=== PATIENT | female | born 1965 | race African-American/Black ===

== ENCOUNTER 2019-06-01 18:47 | Emergency (ER) | payer OTHER ==
[~2019-06-01] VITALS: Ht 152.4 cm; Wt 77.1 kg
[~2019-06-01 18:47] MED LIST: LIPITOR20 MG ORAL; METFORMIN HCL500 M1 ORAL; NORCO 5-325 TA1 EAC1 ORAL
[2019-06-01 19:10] VITALS: BP 157/84
--- NOTE | 2019-06-01 19:10 | NUR ---
Note undone in EDM - 06/01/19 at 2100 by JONELLE ED Nurse Note: Pt walked in to ED c/o rectal bleeding x2 days. Pt also c/o upper abdominal pain, weakness, dizziness and loss of appetite. Denies vomiting and diarrhea. Afebrile. Not in any distress. Kazakh speaking only. Family member at bedside.
--- NOTE | 2019-06-01 19:10 | NUR ---
ED Nurse Note: Pt walked in to ED c/o bloody stools x2 days. Pt also c/o upper abdominal pain, weakness, dizziness and loss of appetite. Denies vomiting and diarrhea. Afebrile. Not in any distress. Bulgarian speaking only. Family member at bedside.
--- NOTE | 2019-06-01 19:35 | NUR ---
ED Nurse Note: Iv line established. Blood and urine specimen collected and sent to lab.
--- NOTE | 2019-06-01 19:41 | Emergency Room Report ---
History of Present Illness General Chief Complaint: Gastrointestinal Bleed Source: Patient Present Illness HPI Is a 53-year-old female presents after increased bloody stools. She reports having increased generalized body aches as well as increased dysuria for the past . 3 to 4days she reports having prior history of diabetes and takes metformin . She also takesReports having large amount of bloody stool in the toilet bowl. Recent increase in generalized pain. Had been previously hospitalized several years ago at this facility and had previous history of some anemia in the past. Reports of increased dysuria as well as generalized body aches.Denies taking aspirin or ibuprofen. Allergies: Coded Allergies: No Known Allergies (Unverified , 01/24/14) Patient History Past Medical History: see triage record Reviewed Nursing Documentation: PMH: Agreed; PSxH: Agreed Nursing Documentation-PMH Past Medical History: No History, Except For Hx Cardiac Problems: Yes Hx Diabetes: Yes Hx Cancer: No Hx Gastrointestinal Problems: Yes Hx Neurological Problems: No Review of Systems All Other Systems: negative except mentioned in HPI Physical Exam Vital Signs Date Time Temp Pulse Resp B/P (MAP) Pulse Ox O2 Delivery O2 Flow Rate FiO2 06/01/19 18:59 98.4 71 20 157/84 (108) 98 Room Air Sp02 EP Interpretation: reviewed, normal General Appearance: normal inspection, well appearing, alert, GCS 15, non-toxic , mild distress Head: atraumatic ENT: normal ENT inspection, hearing grossly normal, normal voice Neck: normal inspection, full range of motion, supple, no bony tend Respiratory: normal inspection, lungs clear, normal breath sounds, no respiratory distress, no retraction, no wheezing Cardiovascular #1: regular rate, rhythm, no edema Gastrointestinal: normal inspection, normal bowel sounds, non tender, soft, no guarding, no hernia Rectal: heme positive stool Genitourinary: no CVA tenderness Musculoskeletal: normal inspection, back normal, normal range of motion Neurologic: alert, motor strength/tone normal, cullet washer III-XII nml as tested, oriented x3, responsive, speech normal, normal inspection Psychiatric: normal inspection, judgement/insight normal, mood/affect normal Skin: no rash Medical Decision Making Diagnostic Impression: Primary Impression: Gastrointestinal hemorrhage ER Course Patient presented for increased rectal bleeding. Differential diagnosis include was not limited to diverticulosis, colitis, peptic ulcer disease, coagulopathy among others. Because of complexity of patient's case laboratory tests and imaging studies were ordered. Patient's laboratory testing showed initially normal hemoglobin. Coagulation studies were unremarkable. Rectal exam did show some gross positive blood with maroon-colored stool.Patient is noted to be normotensive with normal blood pressure. She reports having some increased generalized weakness. Patient's patient was given IV acid blockers. She is also given acetaminophen due to generalized body aches. Patient will be admitted for further evaluation and treatment of GI hemorrhage.Patient was discussed with Dr. Rodríguez for [facility] facility and patient be transferred for who agreed accept the patient. Patient is currently hemodynamically stable. I advised patient that she had been accepted to [facility] and she subsequently stated she wanted to leave the hospital AGAINST MEDICAL ADVICE. The patient was advised risk benefits alternatives of leaving AGAINST MEDICAL ADVICE and he indicated understanding and all questions are answered patient still continued want to leave and signed AGAINST MEDICAL ADVICE. Despite risks including but not limited to disability and worsening of current lifestyle. Labs Test 06/01/19 19:40 White Blood Count 6.0 K/UL (4.8-10.8) Red Blood Count 4.83 M/UL (4.20-5.40) Hemoglobin 13.5 G/DL (12.0-16.0) Hematocrit 39.1 % (37.0-47.0) Mean Corpuscular Volume 81 FL (80-99) Mean Corpuscular Hemoglobin 27.9 PG (27.0-31.0) Mean Corpuscular Hemoglobin Concent 34.5 G/DL (32.0-36.0) Red Cell Distribution Width 11.4 % (11.6-14.8) Platelet Count 311 K/UL (150-450) Mean Platelet Volume 5.7 FL (6.5-10.1) Neutrophils (%) (Auto) 41.2 % (45.0-75.0) Lymphocytes (%) (Auto) 46.6 % (20.0-45.0) Monocytes (%) (Auto) 8.1 % (1.0-10.0) Eosinophils (%) (Auto) 3.1 % (0.0-3.0) Basophils (%) (Auto) 1.1 % (0.0-2.0) Prothrombin Time 10.2 SEC (9.30-11.50) Prothromb Time International Ratio 1.0 (0.9-1.1) Activated Partial Thromboplast Time 25 SEC (23-33) Urine Color Yellow Urine Appearance Clear Urine pH 6 (4.5-8.0) Urine Specific [place] 1.010 (1.005-1.035) Urine Protein 2+ (NEGATIVE) Urine Glucose (UA) Negative (NEGATIVE) Urine Ketones Negative (NEGATIVE) Urine Blood Negative (NEGATIVE) Urine Nitrite Negative (NEGATIVE) Urine Bilirubin Negative (NEGATIVE) Urine Urobilinogen Normal MG/DL (0.0-1.0) Urine Leukocyte Esterase Negative (NEGATIVE) Urine RBC 0-2 /HPF (0 - 2) Urine WBC 0-2 /HPF (0 - 2) Urine Squamous Epithelial Cells Few /LPF (NONE/OCC) Urine Bacteria Few /HPF (NONE) Sodium Level 141 MMOL/L (136-145) Potassium Level 3.7 MMOL/L (3.5-5.1) Chloride Level 102 MMOL/L (98-107) Carbon Dioxide Level 25 MMOL/L (21-32) Anion Gap 14 mmol/L (5-15) Blood Urea Nitrogen 14 mg/dL (7-18) Creatinine 0.8 MG/DL (0.55-1.30) Estimat Glomerular Filtration Rate > 60 mL/min (>60) Glucose Level 112 MG/DL (74-106) Calcium Level 10.0 MG/DL (8.5-10.1) Total Bilirubin 0.3 MG/DL (0.2-1.0) Aspartate Amino Transf (AST/SGOT) 17 U/L (15-37) Alanine Aminotransferase (ALT/SGPT) 30 U/L (12-78) Alkaline Phosphatase 86 U/L (46-116) Troponin I 0.000 ng/mL (0.000-0.056) Total Protein 7.4 G/DL (6.4-8.2) Albumin 3.8 G/DL (3.4-5.0) Globulin 3.6 g/dL Albumin/Globulin Ratio 1.1 (1.0-2.7) Last Vital Signs Date Time Temp Pulse Resp B/P (MAP) Pulse Ox O2 Delivery O2 Flow Rate FiO2 06/01/19 18:59 98.4 71 20 157/84 (108) 98 Room Air Status: unchanged Disposition: AGAINST MEDICAL ADVICE Condition: Stable Tim Erwin MD Jun 01, 2019 19:41
[2019-06-01 20:15] LABS: ANION GAP 14 mmol/L (5-15); BLOOD UREA NITROGEN 14 mg/dL (7-18); CARBON DIOXIDE 25 MMOL/L (21-32); CHLORIDE 102 MMOL/L (98-107); CREATININE 0.8 MG/DL (0.55-1.30); POTASSIUM 3.7 MMOL/L (3.5-5.1); SODIUM 141 MMOL/L (136-145)
[2019-06-01 20:17] LABS: APPEARANCE,URINE CLEAR; BILIRUBIN, URINE NEGATIVE (NEGATIVE); GLUCOSE, URINE (UA) NEGATIVE (NEGATIVE); KETONES,URINE NEGATIVE (NEGATIVE); LEUKOCYTE ESTERASE ,URINE NEGATIVE (NEGATIVE); NITRITE,URINE NEGATIVE (NEGATIVE); PH,URINE 6 (4.5-8.0); PROTEIN,URINE 2+ (NEGATIVE); UROBILINOGEN,URINE NORMAL MG/DL (0.0-1.0)
[2019-06-01 20:20] LABS: ALANINE AMINOTRANSFERASE 30 U/L (12-78); ALBUMIN 3.8 G/DL (3.4-5.0); ALBUMIN/GLOBULIN RATIO 1.1 (1.0-2.7); ALKALINE PHOSPHATASE 86 U/L (46-116); ASPARTATE AMINO TRANSFERASE 17 U/L (15-37); BILIRUBIN,TOTAL 0.3 MG/DL (0.2-1.0)
[2019-06-01 20:27] LABS: BASOPHILS % (AUTO) 1.1 % (0.0-2.0); EOSINOPHILS % (AUTO) 3.1 % (0.0-3.0); HEMATOCRIT 39.1 % (37.0-47.0); HEMOGLOBIN 13.5 G/DL (12.0-16.0); LYMPHOCYTES % (AUTO) 46.6 % (20.0-45.0); MEAN CORPUSCULAR VOLUME 81 FL (80-99); MONOCYTES % (AUTO) 8.1 % (1.0-10.0); NEUTROPHILS % (AUTO) 41.2 % (45.0-75.0); PLATELET COUNT 311 K/UL (150-450); RED BLOOD COUNT 4.83 M/UL (4.20-5.40); RED CELL DISTRIBUTION WIDTH 11.4 % (11.6-14.8)
[2019-06-01 20:35] LABS: COLOR,URINE YELLOW
[2019-06-01 21:14] VITALS: BP 105/69
[2019-06-01] MEDS ORDERED: Acetaminophen 500mg (ES) tab ORAL ONE (21:15)
[2019-06-01] MEDS ORDERED: SIMVASTATIN40 MG ORAL (22:19)
[2019-06-01] MEDS ORDERED: LISINOPRIL20 MG ORAL (22:19)
[2019-06-01] MEDS ORDERED: METFORMIN HCL850 M1 ORAL (22:19)
[2019-06-01 22:55] VITALS: BP 126/81
--- NOTE | 2019-06-01 22:55 | NUR ---
AMA: Patient wants to leave AMA. Stated that she doesnt want to be transferred to [facility]. ERMD notified. Explained risk and benefits, verbally understood by the patient and daughter. AMA form signed. Removed ID band and IV line witout complications. Pt is AAOx4, ambulatory and left with all personal belongings. Pt was accompanied by her daughter going home.
== END 2019-06-01 22:55 | disposition short-term general hospital (02) ==
LOC: EMR 21:15 → CANBEDREQ 22:55
DX: K92.2 Gastrointestinal hemorrhage, unspecified (principal); I51.9 Heart disease, unspecified; E11.9 Type 2 diabetes mellitus without complications; Z53.29 Procedure and treatment not carried out because of patient's decision for other reasons
CPT/HCPCS: 36415; 80053; 81001; 84484; 85025; 85610; 85730; 86850; 86900; 86901; 93005; 96361; 96374; J7030; S0028; Z7502; 99284